=== PATIENT | male | born 1950 | race American Indian/Alaskan Native ===

== ENCOUNTER 2017-09-22 16:57 | Inpatient (IN) | payer MEDICAID, OTHER ==
[2017-09-22 16:57] VITALS: BMI 24.4
[2017-09-22 18:03] LABS: BASO # 0.1 K/uL (0.0-0.2); BASO % 1.5 % (0.0-2.0); EOS # 0.1 K/uL (0.0-0.7); EOS % 2.3 % (0.0-4.0); HEMOGLOBIN 10.8 g/dL (12.0-18.0); LYMPH # 1.7 K/uL (1.0-4.3); LYMPH % 43.1 % (20.0-40.0); MEAN CORPUSCULAR HEMOGLOBIN 31.2 pg (27.0-31.0); MEAN CORPUSCULAR HGB CONC 33.9 g/dL (33.0-37.0); MEAN PLATELET VOLUME 7.1 fL (7.2-11.7); MONO # 0.3 K/uL (0.0-0.8); MONO % 6.9 % (0.0-10.0); NEUT # 1.9 K/uL (1.8-7.0); NEUT % 46.2 % (50.0-75.0); NRBC % 0.2 % (0.0-2.0); RBC 3.45 Mil/uL (4.40-5.90); RED CELL DISTRIBUTION WIDTH 14.8 % (11.5-14.5)
[2017-09-22 18:10] LABS: ALB/GLOB RATIO 1.2 (1.0-2.1); ALBUMIN 3.7 g/dL (3.5-5.0); ALT/SGPT 19 U/L (21-72); AST/SGOT 22 U/L (17-59); BLOOD UREA NITROGEN 8 mg/dL (9-20); CALCIUM 8.7 mg/dl (8.6-10.4); GFR AFRICAN-AMERICAN > 60; GFR NON-AFRICAN AMERICAN > 60
--- NOTE | 2017-09-22 18:21 | C.PDOC ---
History Of Present Illness <Joselin Kumari - Last Filed: 09/22/17 18:59> <Danis Christie - Last Filed: 09/22/17 19:39> 66 y/o male presents to the ER requesting detox from heroin. Patient states that his last use was today. Patient denies having suicidal ideation, homicidal ideation, and active physical complaints. (Joselin Kumari) History Per: Patient History/Exam Limitations: no limitations <Joselin Kumari - Last Filed: 09/22/17 18:59> <Danis Christie - Last Filed: 09/22/17 19:39> Time Seen by Provider: 09/22/17 17:24 Chief Complaint (Nursing): Substance Abuse Past Medical History Reviewed: Historical Data, Nursing Documentation, Vital Signs - Medical History PMH: Anemia, Deep Vein Thrombosis, Fractures (left foot), Gastritis, HTN, Peripheral Edema, Pulmonary Embolism Denies: Hyperthyroidism, Hypothyroidism, Chronic Kidney Disease, Schizophrenia, Seizures, Sexually Transmitted Disease, TIA Surgical History: Denies: Appendectomy, Cholecystectomy, Coronary Stent, Pacemaker Family History: States: No Known Family Hx - Social History Hx Tobacco Use: Yes Hx Alcohol Use: No Hx Substance Use: Yes (heroin 10 bags/day) - Immunization History Hx Tetanus Toxoid Vaccination: No Hx Influenza Vaccination: No Hx Pneumococcal Vaccination: No <Joselin Kumari - Last Filed: 09/22/17 18:59> Vital Signs: Last Vital Signs Temp 98.6 F 09/22/17 17:16 Pulse 73 09/22/17 17:16 Resp 18 09/22/17 17:16 BP 147/86 09/22/17 17:16 Pulse Ox 99 09/22/17 19:00 - [facility] Dating by [place] Procedures DETOXIFICATION SERVICES FOR SUBSTANCE ABUSE TREATMENT (07/12/15) DRUG DETOXIFICATION (03/01/15) INJECT/INFUSE ELECTROLYT (10/14/13) INJECT/INFUSE NEC (11/16/14) PACKED CELL TRANSFUSION (01/11/15) VACCINATION NEC (12/28/13) Review Of Systems Except As Marked, All Systems Reviewed And Found Negative. <Joselin Kumari - Last Filed: 09/22/17 18:59> Physical Exam - Physical Exam Appears: No Acute Distress Skin: Normal Color, Warm Head: Atraumatic, Normacephalic Eye(s): bilateral: Normal Inspection Nose: Normal Oral Mucosa: Moist Neck: Supple Chest: Symmetrical Cardiovascular: Rhythm Regular Respiratory: Normal Breath Sounds, No Rales, No Rhonchi, No Wheezing Extremity: Normal ROM Neurological/Psych: Oriented x3, Normal Speech <Joselin Kumari - Last Filed: 09/22/17 18:59> ED Course And Treatment - Laboratory Results Result Diagrams: 09/22/17 17:52 09/22/17 17:52 O2 Sat by Pulse Oximetry: 99 (RA) Pulse Ox Interpretation: Normal Progress Note: Labs and UA ordered. <Joselin Kumari - Last Filed: 09/22/17 18:59> - Laboratory Results Result Diagrams: 09/22/17 17:52 09/22/17 17:52 <Danis Christie - Last Filed: 09/22/17 19:39> Disposition - Disposition Disposition Time: 19:00 <Joselin Kumari - Last Filed: 09/22/17 18:59> Discussed With Dr.: Ramin Mcdonald Comment: accepted the pt on his service and took over the care at 7:38 PM Doctor Will See Patient In The: Hospital Counseled Patient/Family Regarding: Studies Performed, Diagnosis <Danis Christie - Last Filed: 09/22/17 19:39> - Disposition Disposition: HOSPITALIZED Condition: FAIR Forms: [facility] ([place]) - Clinical Impression Clinical Impression: Drug dependence - PA / CANDY VENDOR / Resident Statement MD/DO has reviewed & agrees with the documentation as recorded. - Scribe Statement The provider has reviewed the documentation as recorded by the Scribe <Joselin Kumari - Last Filed: 09/22/17 18:59> <Danis Christie - Last Filed: 09/22/17 19:39> - Scribe Statement Judson De La Fuente Provider Attestation All medical record entries made by the Scribe were at my direction and personally dictated by me. I have reviewed the chart and agree that the record accurately reflects my personal performance of the history, physical exam, medical decision making, and the department course for this patient. I have also personally directed, reviewed, and agree with the discharge instructions and disposition. (Joselin Kumari) Physician Patient Turnover Patient Signed Over To: Danis Christie Handoff Comments: dispo pending <Joselin Kumari - Last Filed: 09/22/17 18:59> Decision To Admit <Joselin Kumari - Last Filed: 09/22/17 18:59> - Pt Status Changed To: Hospital Disposition Of: Inpatient - Admit Certification Admit to Inpatient:: After my assessment, the patient will require hospitalization for at least two midnights. This is because of the severity of symptoms shown, intensity of services needed, and/or the medical risk in this patient being treated as an outpatient. - InPatient: Physician Admission Certification: I certify that this patient requires 2 or more midnights of care for the following reason:: After my assessment, the patient will require hospitalization for at least two midnights. This is because of the severity of symptoms shown, intensity of services needed, and/or the medical risk in this patient being treated as an outpatient. - . Bed Request Type: Psychiatry Admitting Physician: Ramin Mcdonald <Danis Christie - Last Filed: 09/22/17 19:39> - . Patient Diagnosis: Drug dependence
[2017-09-22 18:28] LABS: SQUAMOUS EPITHIAL < 1 /hpf (0-5); URINE BILIRUBIN NEGATIVE (NEGATIVE); URINE BLOOD NEGATIVE (NEGATIVE); URINE CLARITY Clear (Clear); URINE COLOR Yellow (YELLOW); URINE GLUCOSE (UA) NORMAL (Normal); URINE LEUKOCYTE ESTERASE NEG Leu/uL (Negative); URINE PROTEIN NEGATIVE (NEGATIVE); URINE UROBILINOGEN NORMAL mg/dL (0.2-1.0)
[2017-09-22 18:34] LABS: BARBITURATES, UR NEGATIVE (NEGATIVE); BENZODIAZEPINES, UR NEGATIVE (NEGATIVE); PHENCYCLIDINE, UR NEGATIVE (NEGATIVE)
[2017-09-22 18:41] LABS: OPIATES, UR POSITIVE (NEGATIVE)
--- NOTE | 2017-09-22 20:19 | PCM.BM ---
<Will Cabral - Last Filed: 09/22/17 20:52> Treatment Plan Problems - Problems identified on initial assessmt potential for opiate withdrawal Date Initiated: 09/22/17 Time Initiated: 20:18 Assessment reference: NA Status: Active Treatment assets and liabiliti Patient Assests: ADL independent, cognitively intact Patient Liabilities: substance abuse, medical problems - Milieu Protocol Maintain good personal hygiene: daily Encourage regular showers, daily Remind patient to perform daily oral care, daily Assist patient to perform ADL's Conduct patient checks and document Observation sheet: Q15 minutes Maintain personal safety: every shift Educate patient to report safety concerns to staff, every shift Monitor environment for contraband/sharps Medication safety: Monitor for expected outcome, potential side effects: daily, Assess barriers to learning: daily, Assess readiness for medication education: daily <Tita Thacker - Last Filed: 09/23/17 13:28> Family Contact Family involvement: Famliy/SO not involved - Goals for Treatment Patient goals for treatment: COMPLETE DETOX AND CONSIDER AFTERCARE OPTIONS PRESENTED BY COUNSELING STAFF. Discharge/Continuing Care - Education Needs Education Needs: Patient Medication, Patient Diagnosis/Disease Process, Patient Coping Skills, Patient Anger Management skills, Patient Placement options, Patient Community resources - Discharge Discharge Criteria: Ability to care for self, No longer exhibiting s/s of withdrawal, Reduction of target symptoms Discharge to:: Home - Treatment Team Participation Patient/Family/SO Statement: 09/23/17 13:29 "I'M NOT SURE ABOUT AFTERCARE. I'LL THINK ABOUT IT..." Discussed with Family/SO: No Was Patient/Family/SO present at Treatment Team Meeting: Yes <Mabel Herrera - Last Filed: 09/24/17 01:27> - Diagnosis (1) Opioid dependence Status: Acute Interventions: 09/24/17 01:27 * Assess 7x/week regarding severity of withdrawal * Educate regarding risks, benefits, side effects and alternatives of medications * Use Motivational Interviewing for abstinence * Use CBT for relapse prevention * Medication management for withdrawal symptoms * Encourage medication assisted treatment *
[2017-09-23] MEDS ORDERED: Aluminum Hydroxide/Magnesium Hydroxide Susp (30 mL) PO PRN (00:37)
[2017-09-23] MEDS ORDERED: Magnesium Hydroxide Susp 30 ml UD PO ONE (06:49)
--- NOTE | 2017-09-23 14:20 | PCM.PSYCH ---
Initial Psychiatric Evaluation - Initial Psychiatric Evaluation Type of Admission: Voluntary Legal Status: Capacity Chief Complaint (in patient's own words): "I need help." History of Present Illness and Precipitating Events: Patient is seen, chart reviewed, case discussed. This is a 66 year old AA male, who is on disability and lives with family, who presents for opiod use detox. Patient states he snorts 10-15 bags of heroin per day. He states he started using again 4 months ago. Patient states he occasionally uses cocaine as well. Patient states he feels sick and currently is going through withdrawal. Patient denies alcohol use or other illicit drug use. Patient states he smokes 3-4 cigarettes per day. Patient has previously attended detox at [facility] in June 2015 and February 2015 for opiod use disorder. He has stated he also attended other detox programs before in the past. medical history: DVTs, PE, COPD, hyperlipidemia psych history: Opiod Use Disorder Family history: denies Social: Lives with his and 16 year old daughter. Has 6 children in total. Currently on disability. Current Medications: Active Medications Generic Name Dose Route Start Last Admin Trade Name Freq PRN Reason Stop Dose Admin Al Hydrox/Mg Hydrox/Simethicone 30 ml 09/23/17 00:37 Maalox 30 Ml PO TID PRN Indigestion / Heartburn Clonidine HCl 0.1 mg 09/23/17 00:37 Catapres PO Q8 PRN COWS Score More or Equal to 5 Hydroxyzine HCl 25 mg 09/23/17 00:38 Atarax PO Q6 PRN Anxiety Ibuprofen 600 mg 09/22/17 22:25 09/22/17 22:31 Motrin Tab PO 600 mg Q6 PRN Administration moderate pain Loperamide HCl 2 mg 09/23/17 00:37 Imodium PO Q8 PRN Diarrhea Methadone HCl 25 mg 09/23/17 10:00 09/23/17 10:57 Methadone PO 09/28/17 09:59 25 mg Q24H YUNIEL Administration Taper Ondansetron HCl 4 mg 09/23/17 00:37 Zofran Tab PO Q8 PRN Nausea/Vomiting Pseudoephedrine HCl 60 mg 09/23/17 00:37 09/23/17 06:52 Sudafed Tab PO 60 mg QID PRN Administration Nasal/Sinus Congestion Trazodone HCl 50 mg 09/22/17 22:26 09/22/17 22:32 Desyrel PO 50 mg HS PRN Administration insomnia Past Psychiatric History - Past Psychiatric History Previous Treatment History: None History of ETOH/Drug Use: Opiod Use Disorder Pertinent Medical Hx (Current Medical&Sleep Prob, Allergies): Allergies Allergy/AdvReac Type Severity Reaction Status Date / Time No Known Allergies Allergy Verified 09/22/17 17:21 No Known Home Med 09/22/17 Review of Systems - Review of Systems All systems: reviewed and no additional remarkable complaints except - Psychiatric Psychiatric: absent: Anxiety, Depression, Hallucinations, Hopelessness, Suicidal Ideation Mental Status Examination - Personal Presentation Personal Presentation: Looks older than stated age - Affect Affect: Broad - Motor Activity Motor Activity: Calm - Reliability in Providing Information Reliability in Providing Information: Fair - Speech Speech: Organized - Mood Mood: Neutral - Formal Thought Process Formal Thought Process: No Impairment - Obsessions/Compulsions Obsessions: No Compulsions: No - Cognitive Functions Orientation: Person, Place, Situation, Time Sensorium: Alert - Strength & Assets Inventory Strength & Assets Inventory: Family support DSM 5 DX - DSM 5 DSM 5 Diagnosis: Opiod Use Disorder, severe Opiod Withdrawal - Recommended/Plan of Treatment Treatment Recommendations and Plan of Treatment: Start taper with subutex Gabapentin for augmentation As needed medications All risks, benefits and alternatives of the meds discussed,and the pt agreed and understood. Attend groups and activities Supportive therapy and psychoeducation [place] for abstinence CBT for relapse prevention Encourage MAT Refer to rehab or IOP, and self-help groups Smoking cessation with CA Nicotine patch if needed 34 min Projected ELOS: 4-5 days - Smoking Cessation Smoking Cessation Initiated: Yes
--- NOTE | 2017-09-24 10:26 | PCM.PYCHPN ---
Psychiatric Progress Note - Psychiatric Progress Note Patient seen today, length of contact: 16 min Patient Chief Complaint: I am still withdrawing.' Problems Identified/Issues Discussed: The pt is seen, chart reviewed, case discussed with staff. Patient states he is not feeling well. He states he is still having withdrawal symptoms, including nausea and vomiting. Support given, CBT and IL used briefly No new symptoms reported, improving slowly and needs more time No SEs from medications, risks discussed. After care discussed Medication Change: Yes Medical Record Reviewed: Yes Mental Status Examination - Cognitive Function Orientation: Person, Place, Situation, Time Memory: Intact Attention: WNL Concentration: WNL Association: WNL Fund of Knowledge: WNL - Mood Mood: Neutral - Affect Affect: Broad - Speech Speech: Soft - Formal Thought Process Formal Thought Process: No Impairment - Suicidal Ideation Suicidal Ideation: No - Homicidal Ideation Homicidal Ideation: No Goal/Treatment Plan - Goal/Treatment Plan Need for Continued Stay: Severe depression anxiety, Severe functional impairment Progress Toward Problem(s) and Goals/Treatment Plan: Opiod Use Disorder, severe Opiod Withdrawal Continue taper with Methadone Gabapentin for augmentation As needed medications All risks, benefits and alternatives of the meds discussed,and the pt agreed and understood. Attend groups and activities Supportive therapy and psychoeducation [place] for abstinence CBT for relapse prevention Encourage MAT Refer to rehab or IOP, and self-help groups Smoking cessation with [place] Nicotine patch if needed
--- NOTE | 2017-09-25 12:39 | PCM.PYCHPN ---
Psychiatric Progress Note - Psychiatric Progress Note Patient seen today, length of contact: 16 min Patient Chief Complaint: "I still feel sick." Problems Identified/Issues Discussed: The pt is seen, chart reviewed, case discussed with staff. Patient states he still has withdrawal symptoms. He states he is not sleeping well at night. Support given, CBT and ME used briefly No new symptoms reported, improving slowly and needs more time No SEs from medications, risks discussed. Medication Change: Yes Medical Record Reviewed: Yes Mental Status Examination - Cognitive Function Orientation: Person, Place, Situation, Time Memory: Intact Attention: WNL Concentration: WNL Association: WNL Fund of Knowledge: WNL - Mood Mood: Neutral - Affect Affect: Broad - Speech Speech: Soft - Formal Thought Process Formal Thought Process: No Impairment - Suicidal Ideation Suicidal Ideation: No - Homicidal Ideation Homicidal Ideation: No Goal/Treatment Plan - Goal/Treatment Plan Need for Continued Stay: Severe depression anxiety, Severe functional impairment Progress Toward Problem(s) and Goals/Treatment Plan: Continue taper with methadone Gabapentin for augmentation Patient encouraged to use as needed medications All risks, benefits and alternatives of the meds discussed, and the pt agreed and understood. Attend groups and activities Supportive therapy and psychoeducation [place] for abstinence CBT for relapse prevention Encourage MAT Refer to rehab or IOP, and self-help groups Smoking cessation with ME Nicotine patch if needed
--- NOTE | 2017-09-26 15:02 | PCM.PYCHPN ---
Psychiatric Progress Note - Psychiatric Progress Note Patient seen today, length of contact: 15 minutes Patient Chief Complaint: I'm not feeling better as I have back ache. Problems Identified/Issues Discussed: Patient seen, chart reviewed, case discussed with the staff. Issues related to illness and treatment were discussed with the patient and staff. Reported compliant with treatment with no adverse affects. Tolerating treatment very well. Patient reported feeling little better because of his back ache. Patient will get ibuprofen for his back ache. His withdrawal symptoms are less than before. Aftercare discussed with the patient. At the time of evaluation, patient was awake alert oriented 3, no delusions, no auditory visual hallucinations, no suicidal ideations or homicidal ideations. Medical Problems: DVT PE COPD Hyperlipidemia Diagnostic Results: Reviewed DSM 5 Symptoms Update: Some improvement with treatment Medication Change: No Medical Record Reviewed: Yes Mental Status Examination - Cognitive Function Orientation: Person, Place, Situation, Time Memory: Intact Attention: WNL Concentration: WNL Association: WNL Fund of Knowledge: WNL Decription of patient's judgement and insights: Fair - Mood Mood: Anxious - Affect Affect: Other (Appropriate) - Speech Speech: Soft - Formal Thought Process Formal Thought Process: No Impairment Psychotic Thoughts and Behaviors: None - Suicidal Ideation Suicidal Ideation: No - Homicidal Ideation Homicidal Ideation: No Goal/Treatment Plan - Goal/Treatment Plan Need for Continued Stay: Remain at risks for inpatient hospitalization, Discharge may exacerbated symptoms, Severe functional impairment Progress Toward Problem(s) and Goals/Treatment Plan: Patient education Supportive therapy CBT for relapse prevention [place] for abstinence Continue treatment as before Estimated Date of D/C: 09/28/17 - Smoking Cessation Smoking Cessation Initiated: No
--- NOTE | 2017-09-27 13:28 | PCM.PYCHPN ---
Psychiatric Progress Note - Psychiatric Progress Note Patient seen today, length of contact: 15 minutes Patient Chief Complaint: I'm feeling better but I still have my back ache. Problems Identified/Issues Discussed: Patient seen, chart reviewed, case discussed with the staff. Issues related to illness and treatment were discussed with the patient and staff. Reported compliant with treatment with no adverse affects. Tolerating treatment very well. Patient reported feeling better, still complaining about his back ache despite taking pain medications. Calm and cooperative with good eye contact. Aftercare discussed with the patient. At the time of evaluation, patient was awake alert oriented 3, no delusions, no auditory visual hallucinations, no suicidal ideations or homicidal ideations. Medical Problems: DVT PE COPD Hyperlipidemia Diagnostic Results: Reviewed DSM 5 Symptoms Update: Improving with treatment Medication Change: No Medical Record Reviewed: Yes Mental Status Examination - Cognitive Function Orientation: Person, Place, Situation, Time Memory: Intact Attention: WNL Concentration: WNL Association: WNL Fund of Knowledge: WN Decription of patient's judgement and insights: Fair - Mood Mood: Depressed (Less than before) - Affect Affect: Depressed - Speech Speech: Appropriate, Soft - Formal Thought Process Formal Thought Process: No Impairment Psychotic Thoughts and Behaviors: None - Suicidal Ideation Suicidal Ideation: No - Homicidal Ideation Homicidal Ideation: No Goal/Treatment Plan - Goal/Treatment Plan Need for Continued Stay: Remain at risks for inpatient hospitalization, Discharge may exacerbated symptoms, Severe functional impairment Progress Toward Problem(s) and Goals/Treatment Plan: Patient education Supportive therapy CBT for relapse prevention [place] for abstinence Continue treatment as before Estimated Date of D/C: 09/28/17 - Smoking Cessation Smoking Cessation Initiated: No
[2017-09-27 21:09] VITALS: RESP 20
[2017-09-28 08:39] VITALS: BP 120/74; PULSE 71; TEMP 98.3; O2SAT 98
--- NOTE | 2017-09-28 08:55 | PCM.PYCHDC ---
Mental Status Examination - Mental Status Examination Orientation: Person Discharge Summary - Discharge Note Consultations:: List each consultation separately and include: 1. Reason for request. 2. Findings. 3. Follow-up Summary of Hospital Course include:: 1. Description of specific treatment plan utilized for patients during their course of treatmen. 2. Summarize the time- course for resolution of acute symptoms and/or regressed behaviors. 3. Describe issues identified and worked on during hospitalization. 4. Describe medication utilized. 5. Describe medical problems identified and treated. 6. Reassessment of suicide risk Summary of Hospital Course: Patient is seen, chart reviewed, case discussed. This is a 66 year old AA male, who is on disability and lives with family, who presents for opiod use detox. Patient states he snorts 10-15 bags of heroin per day. He states he started using again 4 months ago. Patient states he occasionally uses cocaine as well. Patient states he feels sick and currently is going through withdrawal. Patient denies alcohol use or other illicit drug use. Patient states he smokes 3-4 cigarettes per day. Patient has previously attended detox at [facility] in June 2015 and February 2015 for opiod use disorder. He has stated he also attended other detox programs before in the past. medical history: DVTs, PE, COPD, hyperlipidemia psych history: Opiod Use Disorder Family history: denies Social: Lives with his and 16 year old daughter. Has 6 children in total. Currently on disability. He will go to a rehab in [place]. - Diagnosis (1) Opioid dependence Current Visit: No Status: Acute - Final Diagnosis (DSM 5) Condition upon Discharge: FAIR Disposition: HOME/ ROUTINE Follow-up Treatment Plan: Continue taper with methadone Gabapentin for augmentation Patient encouraged to use as needed medications All risks, benefits and alternatives of the meds discussed, and the pt agreed and understood. Attend groups and activities Supportive therapy and psychoeducation [place] for abstinence CBT for relapse prevention Encourage MAT Refer to rehab or IOP, and self-help groups Smoking cessation with [place] Nicotine patch if needed Prescriptions/Medication Reconciliation: traZODone [Desyrel] 50 mg PO HS PRN #30 tab PRN Reason: insomnia
== END 2017-09-28 11:15 | disposition home or self-care (01) | DRG 744 ==
LOC: C.ER 16:57 → C.7D 19:37 → C.9E 19:37
PROVIDERS: ADMIT Psychiatry & Neurology Psychiatry; ATTEND Psychiatry & Neurology Psychiatry
PROC: HZ52ZZZ Individual Psychotherapy for Substance Abuse Treatment, Cognitive-Behavioral (ICD-10-PCS; principal; 2017-09-22)
PROC: HZ2ZZZZ Detoxification Services for Substance Abuse Treatment (ICD-10-PCS; 2017-09-22)
PROC: HZ59ZZZ Individual Psychotherapy for Substance Abuse Treatment, Supportive (ICD-10-PCS; 2017-09-22)
PROC: HZ56ZZZ Individual Psychotherapy for Substance Abuse Treatment, Psychoeducation (ICD-10-PCS; 2017-09-22)
DX: F11.23 Opioid dependence with withdrawal (principal); J44.9 Chronic obstructive pulmonary disease, unspecified; F14.90 Cocaine use, unspecified, uncomplicated; F17.200 Nicotine dependence, unspecified, uncomplicated; E78.5 Hyperlipidemia, unspecified; M54.9 Dorsalgia, unspecified

== ENCOUNTER 2018-05-15 00:05 | Emergency (ER) | payer MEDICARE, MEDICAID ==
[2018-05-15 00:05] VITALS: BMI 24.4
[2018-05-15] MEDS ORDERED: Sodium Chloride 0.9% 1,000 ML IV ONE (00:48)
[2018-05-15] MEDS ORDERED: Sodium Chloride 0.9% 1,000 ML ONE (00:58)
[2018-05-15 01:09] LABS: EOS % 0.9 % (0.0-4.0); HEMOGLOBIN 11.2 g/dL (12.0-18.0); LYMPH # 1.3 K/uL (1.0-4.3); LYMPH % 31.6 % (20.0-40.0); MEAN CELL VOLUME 91.6 fL (80.0-94.0); MEAN CORPUSCULAR HEMOGLOBIN 30.1 pg (27.0-31.0); MEAN CORPUSCULAR HGB CONC 32.9 g/dL (33.0-37.0); MEAN PLATELET VOLUME 7.7 fL (7.2-11.7); MONO # 0.4 K/uL (0.0-0.8); MONO % 8.8 % (0.0-10.0); NEUT # 2.3 K/uL (1.8-7.0); NEUT % 57.7 % (50.0-75.0); RBC 3.72 Mil/uL (4.40-5.90); RED CELL DISTRIBUTION WIDTH 13.7 % (11.5-14.5)
[2018-05-15 01:14] LABS: INR 1.2; PROTHROMBIN TIME 13.4 SECONDS (9.7-12.2)
[2018-05-15 01:20] LABS: SQUAMOUS EPITHIAL < 1 /hpf (0-5); URINE BILIRUBIN NEGATIVE (NEGATIVE); URINE BLOOD NEGATIVE (NEGATIVE); URINE CLARITY Clear (Clear); URINE COLOR Yellow (YELLOW); URINE GLUCOSE (UA) NORMAL (Normal); URINE LEUKOCYTE ESTERASE NEG Leu/uL (Negative); URINE PROTEIN NEGATIVE (NEGATIVE); URINE UROBILINOGEN NORMAL mg/dL (0.2-1.0)
[2018-05-15 01:21] LABS: ALB/GLOB RATIO 1.3 (1.0-2.1); ALBUMIN 4.1 g/dL (3.5-5.0); ALT/SGPT 37 U/L (21-72); AST/SGOT 42 U/L (17-59); BLOOD UREA NITROGEN 9 mg/dL (9-20); CALCIUM 8.9 mg/dl (8.6-10.4); GFR NON-AFRICAN AMERICAN > 60
--- NOTE | 2018-05-15 01:35 | C.PDOC ---
History Of Present Illness 67 year old male presents to the ER with a complaint of right ear pain, nasal congestion, and cough productive of white sputum for the past week. Patient states he had blood in his mucous today and coughed up blood tinged sputum. Idania abbott reports he feels tired and had generalized malaise. Also reports constipation for 4 days. Denies SOB, fever, or chills. Time Seen by Provider: 05/15/18 00:38 Chief Complaint (Nursing): ENT Problem History Per: Patient History/Exam Limitations: no limitations Onset/Duration Of Symptoms: Days (7) Current Symptoms Are (Timing): Still Present Location Of Pain: Ear(s) Sick Contacts (Context): None Associated Symptoms: Cough, Sputum (White), Nasal Congestion. denies: Fever, Chills Ear Symptoms: Left: None, Right: Ear Pain Recent travel outside of the [place]: No Past Medical History Reviewed: Historical Data, Nursing Documentation, Vital Signs Vital Signs: Last Vital Signs Temp 99 F 05/15/18 00:16 Pulse 68 05/15/18 00:16 Resp 20 05/15/18 00:16 BP 201/104 H 05/15/18 00:16 Pulse Ox 99 05/15/18 00:16 - Medical History PMH: Anemia, Deep Vein Thrombosis, Fractures (right foot), Gastritis, HTN, Osteoporosis, Peripheral Edema, Pulmonary Embolism Denies: Diabetes, Hepatitis, HIV, Hyperthyroidism, Hypothyroidism, Chronic Kidney Disease, Schizophrenia, Seizures, Sexually Transmitted Disease, TIA Surgical History: Denies: Appendectomy, Cholecystectomy, Coronary Stent, Pacemaker - [facility] Procedures DETOXIFICATION SERVICES FOR SUBSTANCE ABUSE TREATMENT (09/22/17) DRUG DETOXIFICATION (03/01/15) INDIV PSYCHOTHERAPY FOR SUBSTANCE ABUSE TREATMENT, SUPPORT (09/22/17) INDIV PSYCHOTHERAPY FOR SUBSTANCE ABUSE, COGNITIV [facility]HAVIORAL (09/22/17) INDIV PSYCHOTHERAPY FOR SUBSTANCE ABUSE, PSYCHOEDUCATION (09/22/17) INJECT/INFUSE ELECTROLYT (10/14/13) INJECT/INFUSE NEC (11/16/14) PACKED CELL TRANSFUSION (01/11/15) VACCINATION NEC (12/28/13) Family History: States: Unknown Family Hx - Social History Hx Tobacco Use: Yes Hx Alcohol Use: No Hx Substance Use: Yes - Immunization History Hx Tetanus Toxoid Vaccination: No Hx Influenza Vaccination: No Hx Pneumococcal Vaccination: No Review Of Systems Constitutional: Positive for: Malaise, Other (Tired). Negative for: Fever, Chills ENT: Positive for: Ear Pain (Right), Nose Congestion Respiratory: Positive for: Cough, Sputum (White). Negative for: Shortness of Breath Physical Exam - Physical Exam Appears: Non-toxic Skin: Normal Color, Warm, Dry Head: Atraumatic, Normacephalic Eye(s): bilateral: Normal Inspection Ear(s): Bilateral: Normal Nose: Other (Congestion, no blood in the nares) Oral Mucosa: Moist Throat: Normal, No Erythema, No Exudate Neck: Normal, Supple Chest: Symmetrical, No Tenderness Cardiovascular: Rhythm Regular Respiratory: Normal Breath Sounds, No Rales, No Rhonchi, No Wheezing, Other (Cou ghing) Gastrointestinal/Abdominal: Soft, No Tenderness Extremity: Normal ROM, Pedal Edema (trace) Neurological/Psych: Oriented x3, Normal Speech Gait: Steady ED Course And Treatment - Laboratory Results Result Diagrams: 05/15/18 01:01 05/15/18 01:01 O2 Sat by Pulse Oximetry: 99 (Room air) Pulse Ox Interpretation: Normal - Other Rad Obstructive Series X-Ray: Interpreted by Me, Viewed By Me Interpretation: Normal gas bowel pattern. Medical Decision Making Medical Decision Making: Blood work, urinalysis, and obstructive series ordered, results were unrema rkable. IV fluids administered. Patient is resting comfortably in the ER in no acute distress, vitals are stable, will discharge home with Rx and instructions to follow up with PMD. Disposition Counseled Patient/Family Regarding: Diagnosis, Need For Followup, Rx Given - Disposition Referrals: [facility] [Outside] [facility] [employer] [Outside] Disposition: HOME/ ROUTINE Disposition Time: 02:43 Condition: STABLE Additional Instructions: Follow up with your primary medical doctor or clinic in 2-5 days for further evaluation. Take medications as prescribed. Return to the emergency department at any time if symptoms persist or worsen. Prescriptions: Docusate [Colace] 100 mg PO TID PRN #30 cap PRN Reason: Constipation Furosemide [Lasix] 20 mg PO DAILY #10 tab Magnesium Citrate [Citrate of Mag] 300 ml PO ONCE PRN #1 bottle PRN Reason: Constipation Prednisone [Deltasone] 2 tab PO DAILY #10 tablet Instructions: Constipation, Adult (DC), Viral Upper Respiratory Infection, Adult (DC) Forms: [employer] (French) - POA Present On Arrival: None - Clinical Impression Clinical Impression: Constipation, Upper respiratory infection - PA / [employer] / Resident Statement MD/DO has reviewed & agrees with the documentation as recorded. - Scribe Statement The provider has reviewed the documentation as recorded by the Scribcourtney Nguyễn All medical record entries made by the Scribe were at my direction and personally dictated by me. I have reviewed the chart and agree that the record accurately reflects my personal performance of the history, physical exam, medical decision making, and the department course for this patient. I have also personally directed, reviewed, and agree with the discharge instructions and disposition.
[2018-05-15 01:36] LABS: B-TYPE NATRIURETIC PEPTIDE 434 pg/mL (0-900)
[2018-05-15 02:51] VITALS: O2SAT 99
[2018-05-15 03:22] VITALS: BP 173/85; PULSE 62; RESP 18; TEMP 98.5
--- NOTE | 2018-05-15 18:00 | RAD ---
Date of service: 05/15/2018 PROCEDURE: Radiographs of the chest and abdomen (obstructive series) HISTORY: cough and abd pain, constipation COMPARISON: No prior. TECHNIQUE: AP radiograph of the chest, with upright and supine radiographs of the abdomen. FINDINGS: CHEST: Lungs: Clear. Cardiovascular: Normal size heart. No pulmonary vascular congestion. No aortic atherosclerotic calcification present Pleura: No pleural fluid. No pneumothorax. Other findings: None. ABDOMEN AND PELVIS: Bowel: Unremarkable bowel gas pattern. No evidence of mechanical obstruction. Free air: None. Bones: Unremarkable. Other findings: None. IMPRESSION: Unremarkable radiographs of chest and abdomen. No evidence of mechanical bowel obstruction.
== END 2018-05-15 03:38 | disposition home or self-care (01) ==
LOC: C.ER 00:05
DX: J06.9 Acute upper respiratory infection, unspecified (principal); K59.00 Constipation, unspecified
CPT/HCPCS: 74022; 80053; 81001; 83880; 84484; 85025; 85610; 85730; 96360; 99285; J7030